=== PATIENT | female | born 1980 | race Caucasian/White ===

== ENCOUNTER 2017-06-12 20:25 | Emergency (ER) | payer BC ==
[~2017-06-12] VITALS: Ht 170.2 cm; Wt 81.8 kg
[2017-06-12] MEDS ORDERED: CEFD300C3 PO (20:56)
[2017-06-12] MEDS ORDERED: CHOL200016 PO (20:56)
[2017-06-12] MEDS ORDERED: NORE-8 PO (20:56)
[2017-06-12] MEDS ORDERED: FERR-89 PO (20:56)
[2017-06-13 00:12] VITALS: BP 116/78
== END 2017-06-13 00:21 | disposition home or self-care (01) ==
LOC: EMS 20:28
DX: N63.0 Unspecified lump in unspecified breast (principal); R05 Cough; Z98.82 Breast implant status; Z88.5 Allergy status to narcotic agent
CPT/HCPCS: 99283